=== PATIENT | female | born 1970 | race Two or more races ===

== ENCOUNTER → 2021-12-07 12:43 | Outpatient (BNVA) | payer OTHER, SELFPAY | PROVIDERS: PCP Nurse Practitioner Family; Referring Provider Nurse Practitioner Family; Visit Provider Nurse Practitioner ==

== ENCOUNTER 2022-02-11 07:53 | Day surgery (SDC) | payer OTHER, SELFPAY ==
--- NOTE | 2022-02-08 12:26 | HO.ANESPROP2 ---
Documented by User: Jenifer aLo NP 02/08/22 12:27 HPI - Anesthesia Eval Consult details Narrative: 51yo F for Colonoscopy COUNT INCLUDES THE [facility] Active Problems Active Problems: All Active Problems (Updated 12/11/21 @ 16:16 by ABENA Martin) Arthritis of both hips (Acute) Arthritis of lumbar spine (Acute) Positive colorectal cancer screening using Cologuard test (Acute) Rectal bleeding (Acute) Impaired fasting glucose (Acute) Elevated cholesterol (Acute) HTN (hypertension) (Acute) Past Medical History Medical History (Updated 12/11/21 @ 16:16 by ABENA Martin) Arthritis of spine Elevated cholesterol HTN (hypertension) Family History Family History (Updated 11/12/21 @ 15:39 by POLA Win) Mother Brain cancer Lung cancer Father Throat cancer Maternal Aunt HTN (hypertension) Thyroid disease Surgical History Surgical History (Updated 11/12/21 @ 15:34 by POLA Win) History of hip replacement Social History Social History Patient Tobacco Use Status: Never used Tobacco Are you DNR?: No Advance Directives: No Advance Directives Information Provided: Yes Nutrition Risks: No Nutritional Risk Meds Allergies Allergy/AdvReac Type Severity Reaction Status Date / Time cefaclor [From Ceclor] Allergy Mild Unknown Verified 12/07/21 12:49 clindamycin Allergy Mild Unknown Verified 12/07/21 12:49 metronidazole [From Flagyl] Allergy Mild Unknown Verified 12/07/21 12:49 Penicillins Allergy Mild Unknown Verified 12/07/21 12:49 Home Medications Medication Instructions Recorded Confirmed Last Taken Type lisinopril 10 mg tablet 10 mg PO DAILY 11/12/21 02/05/22 02/10/22 History Multi Vitamin 02/11/22 02/11/22 Unknown History Exam Exam Date and Time: February 08, 2022 1226 Assessment and Plan Assessment Anesthesia Assessment: Chart Reviewed Documented by User: Franca Noyola MD 02/11/22 09:17 COUNT INCLUDES THE [facility] Past Medical History Medical History (Updated 12/11/21 @ 16:16 by ABENA Martin) Arthritis of spine Elevated cholesterol HTN (hypertension) Family History Family History (Updated 11/12/21 @ 15:39 by POLA Win) Mother Brain cancer Lung cancer Father Throat cancer Maternal Aunt HTN (hypertension) Thyroid disease Family history of problems with anesthesia: No Surgical History Surgical History (Updated 11/12/21 @ 15:34 by POLA Win) History of hip replacement History of Problems with Anesthesia: No Social History Social History Patient Tobacco Use Status: Never used Tobacco Are you DNR?: No Advance Directives: No Advance Directives Information Provided: Yes Nutrition Risks: No Nutritional Risk Meds Allergies Allergy/AdvReac Type Severity Reaction Status Date / Time cefaclor [From Ceclor] Allergy Mild Unknown Verified 12/07/21 12:49 clindamycin Allergy Mild Unknown Verified 12/07/21 12:49 metronidazole [From Flagyl] Allergy Mild Unknown Verified 12/07/21 12:49 Penicillins Allergy Mild Unknown Verified 12/07/21 12:49 Home Medications Medication Instructions Recorded Confirmed Last Taken Type lisinopril 10 mg tablet 10 mg PO DAILY 11/12/21 02/05/22 02/10/22 History Multi Vitamin 02/11/22 02/11/22 Unknown History Exam Airway Mallampati Class: II TM Dist: >3cm Neck ROM: Full Heart: rrr Lungs: cta Assessment and Plan Assessment Anesthesia Assessment: Anesthesia Plan Discussed and Chart Reviewed Final Anesthetic Review Family History of Problems with Anesthesia: No History of Problems with Anesthesia: No NPO: Yes ASA Class: II Final Preanesthetic Review: No Changes in Pt Med Stat, Meds/Allgs Chart Reviewed and Consent Obtained/Reviewed Patient Risk: Intermediate Procedure Risk: Intermediate Anesthetic Plan Anesthetic Plan: MAC: Disposition: Standard PACU
[2022-02-11 07:51] VITALS: BMI 31.9
[2022-02-11 08:03] VITALS: BP 158/76; PULSE 77; RESP 18; TEMP 36.6; O2SAT 98
--- NOTE | 2022-02-11 08:29 | MHC.SHP ---
Pre-Procedural Eval Section A Date of Service: 02/11/22 The patient is an INPATIENT: No The History & Physical has been completed within 30 days and I have reviewed it.: No Section B Chief Complaint: fecal abnormalities Details of Present Illness: colon cancer screening, positive cologuard test Relevant Family History (Specify if Yes): No Relevant Social History: None Present Medications: see Short Stay Collaborative assessment Medical History: Significant History (Arthritis of spine Elevated cholesterol HTN (hypertension)) History of Previous Operations: Relevant previous surgery/procedure and date(s) (Total hip replacement-right) Allergies: Allergies Allergy/AdvReac Type Severity Reaction Status Date / Time cefaclor [From Ceclor] Allergy Mild Unknown Verified 12/07/21 12:49 clindamycin Allergy Mild Unknown Verified 12/07/21 12:49 metronidazole [From Flagyl] Allergy Mild Unknown Verified 12/07/21 12:49 Penicillins Allergy Mild Unknown Verified 12/07/21 12:49 Review of Systems Sugical H&P ROS: Negative: Constitution, Cardiovascular, Respiratory and Gastrointestinal Exam Surgical H&P Exam: Normal: Heart, Normal: Extremities and Normal: Abdomen Plan Diagnosis/Plan: Unchanged I have reviewed the history and physical and performed a pertinent physical examination on my patient. No changes have occurred unless specified.
[2022-02-11] MEDS: Lactated Ringers 1,000 ML 100 ML IVCONT (08:47)
--- NOTE | 2022-02-11 09:20 | W.PM.OPN ---
Operative Note Operative Note Date of Service: 02/11/22 Narrative: Pre-op diagnosis: Colon cancer screening, positive Cologuard test Post-op diagnosis:?other (Diverticulosis, hemorrhoids, abnormal ileocecal valve) Procedure: COLONOSCOPY TILL CECUM WITH BIOPSIES Consent: Indications for the procedure and potential complications of bleeding, perforation, reaction to medications and missed diagnosis were discussed with the patient and informed consent was obtained. Instrument: Olympus PCF H 190 L variable stiffness pediatric colonoscope Monitoring: Vital signs and clinical assessment, intermittent blood pressure monitoring, continuous EKG monitoring, Pulse oximetry and Carbon Dioxide monitoring were done throughout the procedure. Colon withdrawl time was 21 minutes. Procedure: The patient was placed in the left lateral decubitis position and pre-procedure medications were administered. After a digital rectal examination of the ano-rectum, the video colonoscope was inserted into the rectum and advanced through the colon to the cecum. The colonoscope was slowly withdrawn in a retrograde panoramic fashion and the colon mucosa was carefully examined including a retroflexed view of the rectum. Findings and interventions are described below. Procedure Difficulty: Without difficulty Findings: Terminal Ileum: Not evaluated Cecum:? ? Polypoidal tissue at proximal lip of ICV - biopsies were obtained. Ascending Colon:? Normal Transverse Colon:? Normal Descending Colon:? Moderate diverticulosis Sigmoid Colon:? Severe diverticulosis with luminal narrowing Rectum:? Normal Ano-rectum:? Moderate internal hemorrhoids Colon preparation: Excellent? Impression and Post Procedure Diagnosis: Colonoscopy Findings: ? Polypoidal tissue at proximal lip of ICV - biopsies were obtained. Moderate diverticulosis seen in the []colon Moderate hemorrhoids on retroflexed exam. Plan: Await pathology results Patient has an appointment on 02/26/22 in the GI Clinic with? Christina Russ NP? . Repeat Colonoscopy interval based on path results - in 1 years if biopsies are normal to recheck the ICV. Above findings were reviewed with the patient and diverticulosis handout was given in the discharge area Surgeon: Anjelica Smith MD Anesthesia:?MAC (Dr Taylor) Was an Design Engineer Marine Equipment used for this Procedure?:?Yes Design Engineer Marine Equipment:?Eliazar Bhakta Estimated blood loss (mL):?0 Pathology:?other (A- ILEOCECAL VALVE BXS) Condition:?stable Disposition:?PACU
[2022-02-11 10:02] VITALS: BP 116/74; PULSE 81; RESP 16; TEMP 36.4; O2SAT 99
[2022-02-11 10:17] VITALS: BP 109/74; PULSE 77; RESP 16; TEMP 36.4; O2SAT 99
== END 2022-02-11 11:15 | disposition home or self-care (01) ==
PROVIDERS: PCP Nurse Practitioner Family; Visit Provider Internal Medicine Gastroenterology
PROC: 0DJD8ZZ Inspection of Lower Intestinal Tract, Via Natural or Artificial Opening Endoscopic (ICD-10-PCS; CPT 45378; principal; 2022-02-11 09:20)
DX: R19.5 Other fecal abnormalities (principal); D12.0 Benign neoplasm of cecum; K57.30 Diverticulosis of large intestine without perforation or abscess without bleeding; K64.8 Other hemorrhoids; I10 Essential (primary) hypertension; E78.00 Pure hypercholesterolemia, unspecified; Z79.899 Other long term (current) drug therapy; Z88.0 Allergy status to penicillin; Z88.1 Allergy status to other antibiotic agents; Z96.641 Presence of right artificial hip joint
CPT/HCPCS: 45380; 88305

== ENCOUNTER → 2022-02-26 12:46 | Outpatient (BNVA) | payer OTHER, SELFPAY | PROVIDERS: PCP Nurse Practitioner Family; Visit Provider Nurse Practitioner | DX: D12.6 Benign neoplasm of colon, unspecified (principal) ==

== ENCOUNTER 2022-12-25 09:23 | Outpatient (REF) | payer OTHER, SELFPAY ==
[2022-12-25 10:01] LABS: MANUAL DIFF FLAG NO
[2022-12-25 10:46] LABS: Basophils Percent Auto 0.5 % (0-2); Eosinophils Absolute Auto 0.3 X10*3/uL (0.0-0.4); Eosinophils Percent Auto 3.4 % (0-4); Hematocrit 39.5 % (37.0-47.0); Hemoglobin 12.8 g/dl (12.0-16.0); Imm Gran Abs Auto 0.01 X10*3/uL (0.00-0.03); Imm Gran Pct Auto 0.1 % (0.0-0.4); Lymphocytes Absolute Auto 2.2 X10*3/uL (1.2-4.9); Lymphocytes Percent Auto 28.7 % (20-40); Mean Corpuscular HGB Conc 32.4 g/dl (31.0-35.0); Mean Corpuscular Volume 92.5 fL (80.0-98.0); Mean Platelet Volume 10.1 fL (9.4-12.3); Monocytes Absolute Auto 0.4 X10*3/uL (0.1-1.2); Monocytes Percent Auto 5.7 % (2-11); Neutrophils Absolute Auto 4.7 x10*3/uL (2.0-8.3); Neutrophils Percent Auto 61.6 % (45-73); Platelet Count 308 X10*3/uL (160-400); Red Blood Count 4.27 X10*6/uL (4.20-5.50); Red Cell Distribution Width 13.3 % (11.0-16.0); White Blood Count 7.7 X10*3/uL (4.8-10.8)
[2022-12-25 11:26] LABS: Alanine Aminotransferase 17 U/L (0-31); Alkaline Phosphatase 86 U/L (39-117); Anion Gap 15 (12-20); Aspartate Amino Transferase 18 U/L (5-31); Bilirubin Total 0.4 mg/dL (0.0-1.0); Blood Urea Nitrogen 14 mg/dL (9-16); Calcium 9.3 mg/dL (8.4-10.2); Carbon Dioxide 23 mmol/L (22-29); Chloride 108 mmol/L (96-108); Estimated Glomerular Filt Rate > 60; Glucose Random 89 mg/dL (60-115); Potassium 4.5 mmol/L (3.3-5.1); Sodium 141 mmol/L (135-145); Total Protein 6.7 g/dL (6.5-8.0)
== END 2022-12-25 09:24 | disposition home or self-care (01) ==
LOC: HO.LAB 09:23
PROVIDERS: PCP Nurse Practitioner Primary Care; Visit Provider Nurse Practitioner
DX: Z01.818 Encounter for other preprocedural examination (principal); D12.6 Benign neoplasm of colon, unspecified
CPT/HCPCS: 36415; 80053; 85025

== ENCOUNTER 2023-03-17 10:23 | Day surgery (SDC) | payer OTHER, SELFPAY ==
--- NOTE | 2023-03-14 13:16 | HO.ANESPROP2 ---
Documented by User: Jenifer Lao NP 03/14/23 13:17 HPI - Anesthesia Eval Consult details Narrative: 52yo F for Colonoscopy PMFSH Active Problems Active Problems: All Active Problems (Updated 12/25/22 @ 10:28 by ABENA Martin) Pre-op examination (Acute) Tubular adenoma of colon (Acute) Arthritis of both hips (Acute) Arthritis of lumbar spine (Acute) Positive colorectal cancer screening using Cologuard test (Acute) Rectal bleeding (Acute) Impaired fasting glucose (Acute) Elevated cholesterol (Acute) HTN (hypertension) (Acute) Past Medical History Medical History Arthritis of spine Elevated cholesterol HTN (hypertension) Family History Family History Mother Brain cancer Lung cancer Father Throat cancer Maternal Aunt HTN (hypertension) Thyroid disease Family history of problems with anesthesia: No Surgical History Surgical History History of hip replacement Hx of colonoscopy History of Problems with Anesthesia: No Social History Social History Patient Tobacco Use Status: Never used Tobacco Are you DNR?: No Advance Directives: No Advance Directives Information Provided: Yes Nutrition Risks: No Nutritional Risk Meds Allergies Allergy/AdvReac Type Severity Reaction Status Date / Time cefaclor [From Ceclor] Allergy Mild Unknown Verified 12/25/22 09:31 clindamycin Allergy Mild Unknown Verified 12/25/22 09:31 metronidazole [From Flagyl] Allergy Mild Unknown Verified 12/25/22 09:31 Penicillins Allergy Mild Unknown Verified 12/25/22 09:31 Home Medications Medication Instructions Recorded Confirmed Last Taken Type lisinopril 10 mg tablet 10 mg PO DAILY 11/12/21 02/05/22 03/16/23 History Multi Vitamin 02/11/22 02/11/22 03/10/23 History Saccharomyces boulardii 250 mg 250 mg PO BID 02/26/22 03/15/23 History capsule (Daily Probiotic (S. boulardii)) Exam Exam Date and Time: March 14, 2023 1316 Pertinent Lab Results Pertinent Lab Results: Laboratory Tests 12/25/22 12/25/22 09:59 09:59 WBC 7.7 Hgb 12.8 Hct 39.5 Plt Count 308 Sodium 141 Potassium 4.5 Chloride 108 Carbon Dioxide 23 BUN 14 Creatinine 0.63 Assessment and Plan Assessment Anesthesia Assessment: Chart Reviewed Final Anesthetic Review Family History of Problems with Anesthesia: No History of Problems with Anesthesia: No Documented by User: Franca Noyola MD 03/17/23 11:38 [facility] Past Medical History Medical History Arthritis of spine Elevated cholesterol HTN (hypertension) Family History Family History Mother Brain cancer Lung cancer Father Throat cancer Maternal Aunt HTN (hypertension) Thyroid disease Surgical History Surgical History History of hip replacement Hx of colonoscopy History of Problems with Anesthesia: No Social History Social History Patient Tobacco Use Status: Never used Tobacco Are you DNR?: No Advance Directives: No Advance Directives Information Provided: Yes Nutrition Risks: No Nutritional Risk Meds Allergies Allergy/AdvReac Type Severity Reaction Status Date / Time cefaclor [From Ceclor] Allergy Mild Unknown Verified 12/25/22 09:31 clindamycin Allergy Mild Unknown Verified 12/25/22 09:31 metronidazole [From Flagyl] Allergy Mild Unknown Verified 12/25/22 09:31 Penicillins Allergy Mild Unknown Verified 12/25/22 09:31 Home Medications Medication Instructions Recorded Confirmed Last Taken Type lisinopril 10 mg tablet 10 mg PO DAILY 11/12/21 02/05/22 03/16/23 History Multi Vitamin 02/11/22 02/11/22 03/10/23 History Saccharomyces boulardii 250 mg 250 mg PO BID 02/26/22 03/15/23 History capsule (Daily Probiotic (S. boulardii)) Exam Airway Mallampati Class: II TM Dist: >3cm Neck ROM: Full Heart: rrr Lungs: cta Assessment and Plan Assessment Anesthesia Assessment: Anesthesia Plan Discussed Final Anesthetic Review History of Problems with Anesthesia: No NPO: Yes ASA Class: II Final Preanesthetic Review: No Changes in Pt Med Stat, Meds/Allgs Chart Reviewed and Consent Obtained/Reviewed Patient Risk: Intermediate Procedure Risk: Intermediate Anesthetic Plan Anesthetic Plan: MAC: Disposition: Standard PACU
[2023-03-17 10:25] VITALS: BMI 35.0
[2023-03-17 11:14] VITALS: BP 143/81; PULSE 78; RESP 20; TEMP 36.6; O2SAT 98
[2023-03-17] MEDS: Lactated Ringers 1,000 ML 100 ML IVCONT (11:36)
--- NOTE | 2023-03-17 11:46 | MHC.SHP ---
Pre-Procedural Eval Section A Date of Service: 03/17/23 The patient is an INPATIENT: No The History & Physical has been completed within 30 days and I have reviewed it.: No Section B Chief Complaint: Benign neoplasm of colon, screening Relevant Family History (Specify if Yes): No Relevant Social History: None Present Medications: see Short Stay Collaborative assessment Medical History: Significant History (Arthritis of spine Elevated cholesterol HTN (hypertension)) History of Previous Operations: Relevant previous surgery/procedure and date(s) (History of hip replacement Hx of colonoscopy) Allergies: Allergies Allergy/AdvReac Type Severity Reaction Status Date / Time cefaclor [From Ceclor] Allergy Mild Unknown Verified 12/25/22 09:31 clindamycin Allergy Mild Unknown Verified 12/25/22 09:31 metronidazole [From Flagyl] Allergy Mild Unknown Verified 12/25/22 09:31 Penicillins Allergy Mild Unknown Verified 12/25/22 09:31 Review of Systems Sugical H&P ROS: Negative: Constitution, Cardiovascular, Respiratory and Gastrointestinal Exam Surgical H&P Exam: Normal: Heart, Normal: Lungs, Normal: Extremities and Normal: Abdomen Plan Diagnosis/Plan: Unchanged I have reviewed the history and physical and performed a pertinent physical examination on my patient. No changes have occurred unless specified. Time Spent With Patient Time: Total time managing care of this patient today ____ minutes.
--- NOTE | 2023-03-17 12:28 | W.PM.OPN ---
Operative Note Operative Note Date of Service: 03/17/23 Narrative: COLONOSCOPY TILL CECUM WITH BIOPSIES Pre-op diagnosis: Colon cancer screening, history of colon polyps Post-op diagnosis:? Colon polyps, diverticulosis, hemorrhoids Endoscopist:? Anjelica Smith MD Anesthesia:?MAC Consent: Indications for the procedure and potential complications of bleeding, perforation, reaction to medications and missed diagnosis were discussed with the patient and informed consent was obtained. Instrument: Olympus PCF H 190 L variable stiffness pediatric colonoscope Monitoring: Vital signs and clinical assessment, intermittent blood pressure monitoring, continuous EKG monitoring, Pulse oximetry and Carbon Dioxide monitoring were done throughout the procedure. Please see anesthesia flowsheet. Colon withdrawl time was 29 minutes. Procedure: The patient was placed in the left lateral decubitis position and pre-procedure medications were administered. After a digital rectal examination of the ano-rectum, the video colonoscope was inserted into the rectum and advanced through the colon to the cecum. The colonoscope was slowly withdrawn in a retrograde panoramic fashion and the colon mucosa was carefully examined including a retroflexed view of the rectum. Findings and interventions are described below. Procedure Difficulty: Without difficulty Findings: Terminal Ileum: Not evaluated Cecum: Flat polyp in proximal lip of ICV - not amenable to endoscopic removal - several biopsies were obtained Ascending Colon: Normal Transverse Colon: Normal Descending Colon: Moderate diverticulosis Sigmoid Colon: Moderate diverticulosis Rectum: A few 4-5 mm diminutive appearing polyps - one polyp was biopsied. Ano-rectum: Moderate internal hemorrhoids Colon preparation: Excellent Impression and Post Procedure Diagnosis: Colonoscopy Findings: One small polyp removed Flat polyp in proximal lip of ICV - not amenable to endoscopic removal - several biopsies were obtained Moderate diverticulosis seen in the left colon Moderate hemorrhoids on retroflexed exam. Plan: Await pathology results Patient has an appointment on 04/08/23 in the GI Clinic with Christina Russ NP. If ICV polyp is adenomatous, refer to general surgery for removal. Repeat Colonoscopy interval based on path results - in 3 years if polyps are adenomatous and 10 years if polyps are hyperplastic. Above findings were reviewed with the patient and colon polyps and diverticulosis handouts were given in the discharge area BIOPSIES SHOWED: A.? Ileocecal valve, polypectomy:? Fragments of tubular adenoma; negative for high-grade dysplasia or carcinoma. B.? Rectum, polypectomy:? Hyperplastic mucosal polyp.
[2023-03-17 13:15] VITALS: BP 107/54; PULSE 81; RESP 16; TEMP 36.6; O2SAT 98
[2023-03-17 13:30] VITALS: BP 111/65; PULSE 66; RESP 16; TEMP 36.4; O2SAT 99
== END 2023-03-17 14:08 | disposition home or self-care (01) ==
PROVIDERS: PCP Nurse Practitioner Primary Care; Visit Provider Internal Medicine Gastroenterology
PROC: 0DJD8ZZ Inspection of Lower Intestinal Tract, Via Natural or Artificial Opening Endoscopic (ICD-10-PCS; CPT 45378; principal; 2023-03-17 12:10)
DX: Z12.11 Encounter for screening for malignant neoplasm of colon (principal); Z86.010 Personal history of colon polyps; D12.0 Benign neoplasm of cecum; K62.1 Rectal polyp; K57.30 Diverticulosis of large intestine without perforation or abscess without bleeding; I10 Essential (primary) hypertension; K64.8 Other hemorrhoids; E78.00 Pure hypercholesterolemia, unspecified; R73.01 Impaired fasting glucose; M47.816 Spondylosis without myelopathy or radiculopathy, lumbar region; Z79.899 Other long term (current) drug therapy; Z88.0 Allergy status to penicillin; Z88.1 Allergy status to other antibiotic agents
CPT/HCPCS: 45380; 88305

== ENCOUNTER 2023-04-08 08:15 | Outpatient (AMB) | payer OTHER, SELFPAY ==
[2023-04-08 08:23] VITALS: BP 119/67; PULSE 87; BMI 33.4
--- NOTE | 2023-04-08 08:23 | A.OFFVIS_ITS ---
Intake Vital Signs 04/08/23 08:23 Height 5 ft 1 in Weight 176 lb 12.972 oz BMI 33.4 BP 119/67 Blood Pressure Location Lt brachial Position Sitting Pulse 87 Intake Visit Reasons: S/p colon-Luis Intake Note: Daniella presents in office as a est.patient for a post-op for colo pt got colo done 03.17.23 PT CC: pt reports having no concerns pt denies any other GI Issues Reprographics Technician Required: No Accompanied by: Self / Same As Patient Allergies cefaclor [From Ceclor] Allergy (Mild, Verified 04/16/23 09:07) Unknown clindamycin Allergy (Mild, Verified 04/16/23 09:07) Unknown metronidazole [From Flagyl] Allergy (Mild, Verified 04/16/23 09:07) Unknown Penicillins Allergy (Mild, Verified 04/16/23 09:07) Unknown HPI S/p colon-Luis HPI Details Assessment & Plan (1) Tubular adenoma of colon: ?Code(s): D12.6 - Benign neoplasm of colon, unspecified ?Plan: She can not do the colonoscopy until February. She denies any bowel or upper GI problems. There are no prior problems with anesthesia or sedation. She denies cardiac and respiratory problems. NO ID problems. She had a TA on the IC valve and needs rescope to check this. (2) Pre-op examination: ?Code(s): Z01.818 - Encounter for other preprocedural examination ? ? ? Orders: Orders Comprehensive Met. Panel Today D12.6 - Benign rodolfo plasm of colon, un specified ? Complete Blood Cou nt Auto Diff Today D12.6 - Benign rodolfo plasm of colon, un specified ? Medications: New peg 3350-electroly carrington 236-22.74-6.74 -5.86 gram (Golyt naina) ?? until feca l effluent is cristóbal r; do not exceed a total volume of 2 ,000 mL 240 mL? PO Q10M 1 day 4,000 mL 0RF Z12.11 - Encounter for screening for malignant neoplas m of colon LABS Laboratory Tests 12/25/22 12/25/22 09:59 09:59 WBC 7.7 Hgb 12.8 Hct 39.5 Estimated GFR > 60 Total Bilirubin 0.4 AST 18 ALT 17 Alkaline Phosphata se 86 COLONOSCOPY 03/24/23? Findings: Terminal Ileum: Not evaluated Cecum:? Flat polyp in proximal lip of ICV - not amenable to endoscopic removal - several biopsies were obtained Ascending Colon:? Normal Transverse Colon:? Normal Descending Colon:? Moderate diverticulosis Sigmoid Colon:? Moderate diverticulosis Rectum:? A few 4-5 mm diminutive appearing polyps - one polyp was biopsied. Ano-rectum:? Moderate internal hemorrhoids Colon preparation: Excellent ? Impression and Post Procedure Diagnosis: Colonoscopy Findings: One small polyp removed Flat polyp in proximal lip of ICV - not amenable to endoscopic removal - several biopsies were obtained Moderate diverticulosis seen in the left colon Moderate hemorrhoids on retroflexed exam. Plan: Await pathology results Patient has an appointment on 04/08/23 in the GI Clinic with? Christina Russ NP. If ICV polyp is adenomatous, refer to general surgery for removal. Repeat Colonoscopy interval based on path results - in 3 years if polyps are adenomatous and 10 years if polyps are hyperplastic. Above findings were reviewed with the patient and colon polyps and diverticulosis handouts were given in the discharge area BIOPSIES SHOWED: A.? Ileocecal valve, polypectomy:? Fragments of tubular adenoma; negative for high-grade dysplasia or carcinoma. B.? Rectum, polypectomy:? Hyperplastic mucosal polyp. TODAY'S VISIT She already has the appt set up with the surgeon for IC valve TA. She has problems getting her stools normalized after each colonoscopy and we discuss fiber (loose stools, gas etc) she already take an probiotic supplement. With this I encouraged her to follow with the surgeon and she can always come back to see me as needed if her bowels do not stabilize. I would like to make this I have it so that she has a way to cope with this so she does not develop any fear or reluctance to have future colonoscopies. Regardless of the outcome this procedure should be repeated in 3 years and she is aware of this. The procedure was well tolerated. The results were explained and the patient is agreeable to the follow-up interval as stated. Education was provided to tell any 1st degree relatives about their findings to be sure that they are screened by age 45. Educated that they will be put on a recall list when it is time for their repeat scope but should they move out of state or away from the hospital they will need to remember along with their primary to repeat the procedure in a timely fashion to avoid any adverse complications. [facility] Medical History Arthritis of spine Elevated cholesterol HTN (hypertension) Surgical History History of hip replacement Hx of colonoscopy Family History Mother Brain cancer Lung cancer Father Throat cancer Maternal Aunt HTN (hypertension) Thyroid disease Social History (Updated 04/16/23 @ 09:08 by POLA Delacruz) Alcohol intake: current Alcohol intake frequency: holidays/special occasions only Alcohol type: beer and wine Patient Tobacco Use Status: Never used Tobacco Review of Systems Const Denies fatigue, Denies fever(s), Denies night sweats, Denies poor appetite and Denies weight loss ENT Reports Normal hearing present, Denies dental pain, Denies dysphagia, Denies hearing loss, Denies mouth pain, Denies odynophagia, Denies throat swelling, Denies tongue swelling and Reports other (Dentition adequate) Card Reports no additional complaints Resp Reports no additional complaints GI Denies abdominal pain, Denies melena, Denies bloating, Denies hematochezia, Denies constipation, Reports GI cramping, Denies dysphagia, Denies excessive flatus, Denies early satiety, Denies heartburn, Reports diarrhea, Denies nausea, Denies odynophagia, Denies vomiting and Denies hematemesis Skin/Breast Denies pruritus, Denies lesions, Denies rash and Denies jaundice Neuro Reports Normal hearing present and Denies Abnormal speech present Endo Denies fatigue Aller/Immun Denies throat swelling and Denies tongue swelling Physical Exam Vital Signs: Last Vital Signs Pulse 87 04/08/23 08:23 BP 119/67 04/08/23 08:23 BMI result Body Mass Index 33.4 Const General: cooperative, no acute distress, well developed and well groomed Nutritional Appearance: well nourished and obese Orientation/consciousness: oriented to person, oriented to place and oriented to time Limitations: No language barrier HEENT Head: Yes normocephalic and Yes atraumatic Eyes General: appearance normal, both eyes and all related structures Pupils: Equal, round and reactive pupils present Neck Neck: Yes normal visual inspection and Yes no lymphadenopathy Thyroid: Thyroid normal Resp Effort & Inspection: normal respiratory effort and able to speak in complete sentences Auscultation: clear to auscultation bilaterally Cardio Rate: regular rate Rhythm: regular rhythm Heart sounds: Normal, physiologic split S2 sound present Peripheral pulses: radial pulses present and posterior tibial pulses present GI Inspection: No distended, No Abdominal panniculus present and Yes obesity Palpation (GI): Soft to palpation, nontender, no guarding, not rigid and No hepatosplenomegaly present Percussion: Yes normal to percussion Auscultation: normal bowel sounds Rectal Exam - Female: deferred Skin General skin exam: no rashes or lesions noted, turgor normal, skin not dry, no jaundice, No spider nevi and no striae Rashes: no rashes Nails: normal Neuro General: oriented to person, oriented to place and oriented to time Cranial nerves: Yes Equal, round and reactive pupils present and Yes Normal hearing present Speech: No Abnormal speech present Extrem General: Yes normal to inspection, No clubbing, No cyanosis and No edema Psych Appearance: grossly normal and well kempt Mental Status: mental status grossly normal Speech and movement: Normal speech and movement present Affect: normal affect Attitude: cooperative Thought process: Normal thought process present and not confabulating Thought content: Normal thought content present Insight: Fair insight present (Psych) Judgement: Fair judgement present (Psych) Assessment & Plan Assessment & Plan (1) Tubular adenoma of colon: Comment: TA on the ileocecal valve on 2022 scope, sent to surgeons to consider removal but repeat scope in 3 years Code(s): D12.6 - Benign neoplasm of colon, unspecified Plan: She already has the appt set up with the surgeon for IC valve TA. She has problems getting her stools normalized after each colonoscopy and we discuss fiber (loose stools, gas etc) she already take an probiotic supplement. With this I encouraged her to follow with the surgeon and she can always come back to see me as needed if her bowels do not stabilize. I would like to make this I have it so that she has a way to cope with this so she does not develop any fear or reluctance to have future colonoscopies. Regardless of the outcome this procedure should be repeated in 3 years and she is aware of this. The procedure was well tolerated. The results were explained and the patient is agreeable to the follow-up interval as stated. Education was provided to tell any 1st degree relatives about their findings to be sure that they are screened by age 45. Educated that they will be put on a recall list when it is time for their repeat scope but should they move out of state or away from the hospital they will need to remember along with their primary to repeat the procedure in a timely fashion to avoid any adverse complications. Coding Level of Care Code Est Pt Level 3 (73480) Diagnoses Tubular adenoma of colon D12.6
== END 2023-04-08 09:08 | disposition home or self-care (01) ==
PROVIDERS: PCP Nurse Practitioner Primary Care; Visit Provider Nurse Practitioner
DX: D12.6 Benign neoplasm of colon, unspecified (principal)
CPT/HCPCS: 99213

== ENCOUNTER → 2023-04-08 08:15 | Outpatient (BNVA) | payer OTHER, SELFPAY | PROVIDERS: PCP Nurse Practitioner Primary Care; Visit Provider Nurse Practitioner ==

== ENCOUNTER 2023-04-16 08:54 | Outpatient (AMB) | payer OTHER, SELFPAY ==
--- NOTE | 2023-04-16 09:02 | MHC.OFFVIS ---
Intake Vital Signs 04/16/23 09:08 Height 5 ft 1 in Weight 175 lb BMI 33.1 BP 121/75 Blood Pressure Location Rt brachial Position Sitting Pulse 67 Intake Visit Reasons: Benign neoplasm of colon Intake Note: Patient referred for growth on colon. Unable to have it removed with colonoscopy. First noticed with colonoscopy in 2021. Last colonoscopy February 2023. Senior Clinical Study Manager Required: No Accompanied by: Self / Same As Patient Allergies cefaclor [From Ceclor] Allergy (Mild, Verified 04/16/23 09:07) Unknown clindamycin Allergy (Mild, Verified 04/16/23 09:07) Unknown metronidazole [From Flagyl] Allergy (Mild, Verified 04/16/23 09:07) Unknown Penicillins Allergy (Mild, Verified 04/16/23 09:07) Unknown HPI HPI Comments History of Present Illness Details Patient presents for evaluation after recent colonoscopy demonstrated a large tubular adenoma of the ileocecal valve. Patient was having screening colonoscopy. She has no specific GI complaints or issues. She is tolerating her diet. She is having regular bowel habits. Patient has a distant history of C difficile colitis approximately 6 years ago. Chart was reviewed patient evaluated. No prior abdominal surgeries. [facility] Medical History Arthritis of spine Elevated cholesterol HTN (hypertension) Surgical History History of hip replacement Hx of colonoscopy Family History Mother Brain cancer Lung cancer Father Throat cancer Maternal Aunt HTN (hypertension) Thyroid disease Social History (Updated 04/16/23 @ 09:08 by POLA Delacruz) Alcohol intake: current Alcohol intake frequency: holidays/special occasions only Alcohol type: beer and wine Patient Tobacco Use Status: Never used Tobacco Physical Exam Vital Signs: Last Vital Signs Pulse 67 04/16/23 09:08 BP 121/75 04/16/23 09:08 BMI result Body Mass Index 33.1 Chest Other: Hs 1 and 2, chest breath sounds bilaterally. GI Other: Abdomen soft. Mildly corpulent. Benign. Assessment & Plan Assessment & Plan (1) Tubular adenoma of colon: Code(s): D12.6 - Benign neoplasm of colon, unspecified Plan Discussed with the patient therapeutic options for ileocecectomy. This essentially would be similar to an appendectomy only a bit more bowel will be resected. Risks, benefits, alternatives of procedure reviewed and included but not limited to bleeding, infection, recurrence, numbness, pain, scarring, nonhealing, and very very uncommonly ileostomy. All questions were answered. Patient would like to proceed but has to arrange her schedule on a day which is convenient for her. There is no immediacy to this procedure but I told her she should also not wait until next colonoscopy for this to be performed. Coding Level of Care Code New Pt Level 5 (79219) Diagnoses Tubular adenoma of colon D12.6
[2023-04-16 09:08] VITALS: BP 121/75; PULSE 67; BMI 33.1
== END 2023-04-16 09:38 | disposition home or self-care (01) ==
PROVIDERS: PCP Internal Medicine; Referring Provider Internal Medicine Gastroenterology; Visit Provider Surgery
DX: D12.6 Benign neoplasm of colon, unspecified (principal)
CPT/HCPCS: 99205

== ENCOUNTER → 2023-04-16 08:54 | Outpatient (BNVA) | payer OTHER, SELFPAY | PROVIDERS: PCP Internal Medicine; Referring Provider Internal Medicine Gastroenterology; Visit Provider Surgery ==